=== PATIENT | male | born 1935 | race Caucasian/White ===

== ENCOUNTER 2020-09-22 09:30 | Outpatient (RCR) | payer MEDICARE, SELFPAY | END 2020-09-29 23:55 | disposition home or self-care (01) | LOC: HO.PAOS 09:30 | PROVIDERS: PCP Internal Medicine; Referring Provider Anesthesiology; Visit Provider Psychologist | DX: F43.23 Adjustment disorder with mixed anxiety and depressed mood (principal); Z63.4 Disappearance and death of family member | CPT/HCPCS: 90834 ==

== ENCOUNTER 2020-12-30 06:17 | Day surgery (SDC) | payer MEDICARE, SELFPAY ==
[2020-12-26 10:54] VITALS: BMI 23.5
--- NOTE | 2020-12-29 10:48 | P.CONAN_ITS ---
Documented by User: Stephani Huber 12/29/20 12:06 HPI - Anesthesia Eval Consult details Narrative: 85yo M for Spinal Cord Simulation Trial 12/12/20 Cardiology OV - pt with stable CAD with yearly f/u [facility] Past Medical History Medical History Anemia CAD (coronary artery disease) COPD (chronic obstructive pulmonary disease) Depression Diabetes Elevated cholesterol GERD (gastroesophageal reflux disease) HTN (hypertension) Pulmonary fibrosis Restless leg syndrome Surgical History Surgical History Hx of laminectomy Social History Social History Household Members: Spouse Smoking Status: Unknown if ever smoked Advance Directives Information Provided: No Meds Allergies Allergy/AdvReac Type Severity Reaction Status Date / Time No Known Allergies Allergy Verified 12/26/20 11:00 Home Medications Medication Instructions Recorded Confirmed Last Taken Type atorvastatin 1 tab PO DAILY 12/26/20 12/26/20 Unknown History duloxetine 1 cap PO DAILY 12/26/20 12/26/20 Unknown History fluticasone propionate 2 spray INTRANASAL QAM 12/26/20 12/26/20 Unknown History insulin glargine [Lantus U-100 7 unit SUBCUT BEDTIME 12/26/20 12/30/20 Unknown History Insulin] insulin lispro [Humalog U-100 15 unit SUBCUT BID 12/26/20 12/26/20 Unknown History Insulin] lisinopril 1 tab PO DAILY 12/26/20 12/26/20 Unknown History nitroglycerin 1 tab SUBLINGUAL NEEDED 12/26/20 12/26/20 Unknown History omeprazole 20 mg PO DAILY 12/26/20 12/26/20 Unknown History oxycodone 1 cap PO Q6H PRN 12/26/20 12/26/20 Unknown History pravastatin 1 tab PO DAILY 12/26/20 12/26/20 Unknown History sertraline 2 tab PO DAILY 12/26/20 12/26/20 Unknown History Exam Exam Date and Time: December 29, 2020 1048 Height,Weight and Vital Signs: Height 5 ft 7 in Weight 68.039 kg Narrative Narrative: EKG 12/12/20 SR with 1st degree AV block LAD LBBB Assessment and Plan Assessment Anesthesia Assessment: Chart Reviewed Documented by User: Harley Betancourt MD 12/30/20 07:34 [facility] Past Medical History Medical History Anemia CAD (coronary artery disease) COPD (chronic obstructive pulmonary disease) Depression Diabetes Elevated cholesterol GERD (gastroesophageal reflux disease) HTN (hypertension) Pulmonary fibrosis Restless leg syndrome Surgical History Surgical History Hx of laminectomy Social History Social History Household Members: Spouse Smoking Status: Unknown if ever smoked Advance Directives Information Provided: No Meds Allergies Allergy/AdvReac Type Severity Reaction Status Date / Time No Known Allergies Allergy Verified 12/26/20 11:00 Home Medications Medication Instructions Recorded Confirmed Last Taken Type atorvastatin 1 tab PO DAILY 12/26/20 12/26/20 Unknown History duloxetine 1 cap PO DAILY 12/26/20 12/26/20 Unknown History fluticasone propionate 2 spray INTRANASAL QAM 12/26/20 12/26/20 Unknown History insulin glargine [Lantus U-100 7 unit SUBCUT BEDTIME 12/26/20 12/30/20 Unknown History Insulin] insulin lispro [Humalog U-100 15 unit SUBCUT BID 12/26/20 12/26/20 Unknown History Insulin] lisinopril 1 tab PO DAILY 12/26/20 12/26/20 Unknown History nitroglycerin 1 tab SUBLINGUAL NEEDED 12/26/20 12/26/20 Unknown History omeprazole 20 mg PO DAILY 12/26/20 12/26/20 Unknown History oxycodone 1 cap PO Q6H PRN 12/26/20 12/26/20 Unknown History pravastatin 1 tab PO DAILY 12/26/20 12/26/20 Unknown History sertraline 2 tab PO DAILY 12/26/20 12/26/20 Unknown History Exam Airway Mallampati Class: II Denture: Upper and Lower Heart: LBBB Lungs: Cough Assessment and Plan Assessment Anesthesia Assessment: Anesthesia Plan Discussed and Chart Reviewed Final Anesthetic Review NPO: Yes ASA Class: III Final Preanesthetic Review: No Changes in Pt Med Stat, Meds/Allgs Chart Reviewed, Consent Obtained/Reviewed and Anes Risks/Benef Reviewed Patient Risk: Intermediate Procedure Risk: Low Anesthetic Plan Anesthetic Plan: MAC: Disposition: Standard PACU
--- NOTE | 2020-12-29 18:30 | MHC.SHP ---
Pre-Procedural Eval Section A The patient is an INPATIENT: No Changes since office visit: Yes Patient answered all questions The History & Physical has been completed within 30 days and I have reviewed it.: No Section B Chief Complaint: postlaminectomy syndrome Details of Present Illness: As above Relevant Social History: None Present Medications: see Short Stay Collaborative assessment Medical History: Significant History History of Previous Operations: Relevant previous surgery/procedure and date(s) Allergies: Allergies Allergy/AdvReac Type Severity Reaction Status Date / Time No Known Allergies Allergy Verified 12/26/20 11:00 Review of Systems Sugical H&P ROS: Negative: Constitution, Cardiovascular, Respiratory, Neurological, Psychiatric, Hem-Onc, Allergic/Immunologic, Gastrointestinal, Genitourinary, Musculoskeletal, Integumentary, Endocrine and Eyes/Ears/Nose/Throat Exam Surgical H&P Exam: Normal: HEENT, Normal: Heart, Normal: Lungs, Normal: Extremities, Normal: Abdomen, Normal: Skin and Normal: Neurological Plan Diagnosis/Plan: Unchanged I have reviewed the history and physical and performed a pertinent physical examination on my patient. No changes have occurred unless specified.
--- NOTE | ~2020-12-30 | FL_ITS ---
EXAMINATION: XR FLUOROSCOPY WITH IMAGES CLINICAL INFORMATION: Spinal stimulation trial COMPARISON: None. TECHNIQUE: Fluoroscopy performed by Dr. Amari Sams. Fluoroscopy time: 17.2 minutes DAP: 29.0 mGycm2 Images: 2 FINDINGS: AP and lateral views of cervicothoracic junction reveals 2 posterior epidural stimulators overlying C7 and T1 vertebra. FL/FL guidance in OR IMPRESSION: Fluoroscopy guidance was provided to Dr. Sams during the procedure.
[2020-12-30 06:46] LABS: Glucose, Whole Blood 225 mg/dL (60-115)
[2020-12-30 06:47] VITALS: BP 150/56; PULSE 63; RESP 16; TEMP 36.6; O2SAT 98
--- NOTE | 2020-12-30 06:59 | ECG_ITS ---
Test Reason : PREOP Blood Pressure : / mmHG Vent. Rate : 062 BPM Atrial Rate : 062 BPM P-R Int : 226 ms QRS Dur : 124 ms QT Int : 448 ms P-R-T Axes : 063 -60 071 degrees QTc Int : 454 ms Sinus rhythm with 1st degree A-V block with Premature supraventricular complexes Left axis deviation Left bundle branch block Abnormal ECG No previous ECGs available Referred By: Bassem Pagan Electronically Signed By:CHARLEY RINALDI MD
[2020-12-30] MEDS: Lactated Ringers 1,000 ML 100 ML IVCONT (07:12)
[2020-12-30 09:52] VITALS: BP 147/59; PULSE 58; RESP 18; TEMP 36.6; O2SAT 98
[2020-12-30] MEDS: Acetaminophen 325 MG TABLET 650 MG PO (09:57)
--- NOTE | 2020-12-30 09:57 | PM.OP ---
Brief Operative Note Date of Service: 12/30/20 Pre-op diagnosis: Postlaminectomy syndrome cervical spine Post-op diagnosis: same Procedure: Trial of cervical spinal cord stimulator Implants: None permanent Surgeon: Amari Sams MD Anesthesia: MAC Estimated blood loss (mL): 3 IV fluids (mL): 400 Pathology: none sent Condition: stable Disposition: PACU
[2020-12-30 10:07] VITALS: BP 152/57; PULSE 55; RESP 18; O2SAT 99
--- NOTE | 2020-12-30 10:14 | W.PM.OPN ---
Operative Note Operative Note Date of Service: 12/30/20 Narrative: Narrative: Isrrael is very pleasant 85 years old gentleman who came to OR for the trial of SCS [email or web address] in the attempt to treat the cervical pain secondary to postlaminectomy syndrome cervical spine. After obtaining informed consent patient was brought to the operating room, HE was positioned prone on operating table, [place] [employer] monitors were applied and patient was deeply sedated. Time-out was performed delineating correct site, side, the nature of the procedure, patient's allergy, preoperative antibiotic if needed. All operating room staff was participating in OR time-out procedure. He received preoperatively cefazolin 2 g mg IV approximately 20 minutes before the procedure. Patient's entire back was prepped with ChloraPrep twice and draped with full body fenestrated drape. Sterilely draped C-arm was brought over operating field and square picture of L1 L2 vertebrae were demonstrated on the screen. Attention FIRST was concentrated on the L1-L2 right epidural interspace. The location of the projection of the right pedicle center of the L3 vertebra was found on the skin using C-arm. This location was injected with mixture of lidocaine 2% and Marcaine 0.5% 5 cc. After that 11 blade was used to make a fortino on the skin. 10 cm 14 gauge curved introducer epidural needle was inserted through the fortino and advanced to the epidural interspace. The advancement of the needle was performed on anterior posterior and lateral views. Guitar wire and loss of resistance technique were used to locate epidural space. When guitar wire was spread in the epidural fashion, epidural lead was inserted through the needle and it was to advance to the cervical posterior epidural space on anterior posterior and lateral intermittent views. The advancement of the epidural lead was very difficult in the thoracic spine because of the significant scoliosis curvature. The advancement of the lead in the cervical spine was performed only to the level of C5 vertebral. Patient has significant laminectomy posterior in his cervical spine after which the epidural lead was not at all able to advance. Attempts to sneak the lead above the level of C5 vertebra were unsuccessful. It was abandoned. After that attention was concentrated on the T8 thoracic vertebra. T7-T8 interspace a was chosen as the site of the insertion of the electrode with the hope that the close insertion of the electrode will help to advance the electrode further After that location of the projection of the LEFT pedicle center of the T9 _vertebra was found on the skin using C-arm. This location was injected with mixture of lidocaine 2% and Marcaine 0.5% 5 cc. After that 11 blade was used to make a fortino on the skin. 10 cm 14 gauge curved introducer epidural needle was inserted through the fortino and advanced to T7-T8 epidural interspace. The advancement of the needle was performed on anterior posterior and lateral views. Guitar wire and loss of resistance technique were used to locate epidural space. When guitar wire was spread in the epidural fashion, epidural lead was inserted through the needle and advanced to the right epidural C5 posterior space crossing over the right lead. At this moment the epidural leads were connected to the testing device. Impedance was deemed satisfactory. Since the position of the leads and difficulty of the leads advancement were the maximum achievement I could perform and despite the fact that the epidural leads were spread only to C5 vertebra we decided not to perform wake up check. Impedance was verified. It was satisfactory. position of the leads were established the needles were withdrawn under x-ray control, the stylette wires were removed from the epidural leads. The anchoring devices were dislodged on the leads and advanced to the level of the skin. The anchoring devices were sutured with two 0-0 silk sutures to the skin of the patient and the screws of the anchoring devices were fixed until 3 clicks were heard. The leads were connected to testing device. Bacitracin ointment was applied to the entrance point of bilateral needles. Sterile dressing was applied to the patient's back. The testing device was also glued to the patient's back. Upon completion of the procedure the patient was taken to PACU where HE recovered and UNEVENTFULLY, HE WENT HOME WITHOUT IMMEDIATE COMPLICATIONS. He will continue to use ANTIBIOTICS: Cephalexin 1 g b.i.d.
[2020-12-30 10:25] VITALS: BP 145/59; PULSE 54; RESP 18; O2SAT 99
[2020-12-30 10:41] VITALS: BP 152/64; PULSE 56; RESP 18; O2SAT 98
[2020-12-30 11:20] VITALS: BP 152/64; PULSE 60; RESP 18; TEMP 36.6; O2SAT 97
== END 2020-12-30 11:49 | disposition home or self-care (01) ==
PROVIDERS: PCP Internal Medicine; Visit Provider Anesthesiology
PROC: (CPT 63650; principal; 2020-12-30 07:30)
DX: M96.1 Postlaminectomy syndrome, not elsewhere classified (principal); M47.812 Spondylosis without myelopathy or radiculopathy, cervical region; M54.2 Cervicalgia; M47.816 Spondylosis without myelopathy or radiculopathy, lumbar region; J44.9 Chronic obstructive pulmonary disease, unspecified; I10 Essential (primary) hypertension; E11.9 Type 2 diabetes mellitus without complications; Z79.84 Long term (current) use of oral hypoglycemic drugs; Z79.899 Other long term (current) drug therapy
CPT/HCPCS: 63650 ×2; 82947; 93005; C1897; J0690; J1100; J2370; J3010

== ENCOUNTER → 2021-01-05 10:17 | Outpatient (BNVA) | payer MEDICARE, SELFPAY ==
--- NOTE | 2021-04-29 08:22 | HO.POSTANES ---
Post Anesthesia Evaluation Post Anesthesia Evaluation Anesthesia: Monitored Mental Status: Awake Pain Control: Satisfactory Nausea/Vomiting: None Hydration: Adequate Anesthesia-Related Issues: No Anes. Related Issues
== END ==
PROVIDERS: PCP Internal Medicine; Visit Provider Anesthesiology
DX: M47.812 Spondylosis without myelopathy or radiculopathy, cervical region (principal); M96.1 Postlaminectomy syndrome, not elsewhere classified; G89.4 Chronic pain syndrome; Z79.899 Other long term (current) drug therapy
CPT/HCPCS: 99212

== ENCOUNTER 2021-04-28 10:30 | Day surgery (SDC) | payer MEDICARE, SELFPAY ==
[2021-04-28] VITALS (13 sets, daily range): BP systolic 121–208; BP diastolic 55–100; PULSE 55–68; RESP 14–18; TEMP 35.9–36.4; O2SAT 96–100; BMI 23.5
--- NOTE | ~2021-04-28 | FL_ITS ---
EXAMINATION: XR FLUOROSCOPY WITH IMAGES CLINICAL INFORMATION: Spinal stimulator implant. COMPARISON: None. TECHNIQUE: Fluoroscopy performed by Dr. Amari Sams. Fluoroscopy time: 5.5 minutes DAP: 19.9 mGycm2 Images: 5 FINDINGS: Multiple views of the thoracic and cervical spine were obtained. There are 2 stimulator is seen overlying the lower cervical spine inserted from the lower thoracic spine. Visualized bones and disc spaces are normal. FL/FL guidance in OR IMPRESSION: Fluoroscopy was provided to Dr. Sams for spinal stimulator implant.
[2021-04-28 11:06] LABS: Glucose, Whole Blood 205 mg/dL (60-115)
[2021-04-28] MEDS: Lactated Ringers 1,000 ML 50 ML IVCONT ×2 (11:42→20:24)
[2021-04-28] MEDS: ceFAZolin Sodium/Dextrose,Iso 2 GM/50 ML PIGGYBACK IV (11:43)
--- NOTE | 2021-04-28 13:55 | HO.ANESPROP2 ---
HPI - Anesthesia Eval Consult details Narrative: 85 year old male patient for cervical spinal cord stimulator implant PMFSH Active Problems Active Problems: All Active Problems (Updated 01/05/21 @ 12:12 by Amari Sams MD) Chronic pain syndrome (Acute) Spondylosis of cervical spine without myelopathy (Acute) Postlaminectomy syndrome of cervical region (Acute) Past Medical History Medical History (Updated 04/28/21 @ 14:20 by Monica Hunt) Anemia CAD (coronary artery disease) Chronic pain syndrome COPD (chronic obstructive pulmonary disease) Depression Diabetes Elevated cholesterol GERD (gastroesophageal reflux disease) HTN (hypertension) Postlaminectomy syndrome of cervical region Pulmonary fibrosis Restless leg syndrome Spondylosis of cervical spine without myelopathy Family History Family history of problems with anesthesia: No Surgical History Surgical History Hx of laminectomy History of Problems with Anesthesia: No Social History Social History Household Members: Spouse Patient Tobacco Use Status: Never used Tobacco Second Hand Smoke Exposure: No Use of substances other than those prescribed or required for medical reasons: No Are you DNR?: No Advance Directives: No Advance Directives Information Provided: No Advance Directives on File: No Meds Allergies Allergy/AdvReac Type Severity Reaction Status Date / Time No Known Allergies Allergy Verified 01/05/21 11:01 Home Medications Medication Instructions Recorded Confirmed Last Taken Type atorvastatin 1 tab PO DAILY 12/26/20 12/26/20 Unknown History duloxetine 1 cap PO DAILY 12/26/20 12/26/20 Unknown History fluticasone propionate 2 spray INTRANASAL QAM 12/26/20 12/26/20 Unknown History insulin glargine [Lantus U-100 7 unit SUBCUT BEDTIME 12/26/20 12/30/20 Unknown History Insulin] insulin lispro [Humalog U-100 15 unit SUBCUT BID 12/26/20 12/26/20 Unknown History Insulin] lisinopril 1 tab PO DAILY 12/26/20 12/26/20 Unknown History nitroglycerin 1 tab SUBLINGUAL NEEDED 12/26/20 12/26/20 Unknown History omeprazole 20 mg PO DAILY 12/26/20 12/26/20 Unknown History oxycodone 1 cap PO Q6H PRN 12/26/20 12/26/20 Unknown History pravastatin 1 tab PO DAILY 12/26/20 12/26/20 Unknown History sertraline 2 tab PO DAILY 12/26/20 12/26/20 Unknown History Exam Exam Date and Time: April 28, 2021 1355 Height,Weight and Vital Signs: Height 5 ft 7 in Weight 68.039 kg Vital Signs Temp Pulse Resp BP Pulse Ox 04/28/21 11:58 97.0 F 68 18 152/62 H 99 Pertinent Lab Results Pertinent Lab Results: Laboratory Tests 04/28/21 10:57 POC Glucose 205 H Airway Mallampati Class: II TM Dist: >3cm Neck ROM: Limited Denture: Upper and Lower Heart: RRR Lungs: CTAB Assessment and Plan Assessment Anesthesia Assessment: Anesthesia Plan Discussed and Chart Reviewed Final Anesthetic Review NPO: Yes ASA Class: III Final Preanesthetic Review: No Changes in Pt Med Stat, Meds/Allgs Chart Reviewed, Consent Obtained/Reviewed and Anes Risks/Benef Reviewed Patient Risk: Intermediate Procedure Risk: Intermediate Assessment/Block/Sedation in SS: Assess/Block/Sedation-SS Anesthetic Plan Anesthetic Plan: MAC: Disposition: Standard PACU
--- NOTE | 2021-04-28 14:07 | P.HPSUR_ITS ---
Pre-Procedural Eval Section A Date of Service: 04/28/21 Section B Chief Complaint: postlaminectomy syndrome Details of Present Illness: postlaminectomy syndrome of the cervical spine Relevant Family History (Specify if Yes): No Relevant Social History: None Present Medications: see Short Stay Collaborative assessment Medical History: Significant History History of Previous Operations: Relevant previous surgery/procedure and date(s) Allergies: Allergies Allergy/AdvReac Type Severity Reaction Status Date / Time No Known Allergies Allergy Verified 01/05/21 11:01 Review of Systems Sugical H&P ROS: Negative: Constitution, Cardiovascular, Respiratory, Neurological, Psychiatric, Hem-Onc, Allergic/Immunologic, Gastrointestinal, Genitourinary, Musculoskeletal, Integumentary, Endocrine and Eyes/Ears/Nose/Thr oat Exam Surgical H&P Exam: Normal: HEENT, Normal: Heart, Normal: Lungs, Normal: Extremities, Normal: Abdomen, Normal: Skin and Normal: Neurological Plan Diagnosis/Plan: Unchanged I have reviewed the history and physical and performed a pertinent physical examination on my patient. No changes have occurred unless specified.
--- NOTE | 2021-04-28 17:15 | PM.OP ---
Brief Operative Note Date of Service: 04/28/21 Pre-op diagnosis: Postlaminectomy syndrome cervical spine Post-op diagnosis: same Procedure: implantation of spinal cord stimulator [employer] 2 epidural leads in the posterior cervical spine as well as implantation of alpha wavewrider battery. Implants: Two epidural leads and alpha technology battery Surgeon: Amari Sams MD Anesthesia: MAC Was an Smoke Room Operator used for this Procedure?: No Estimated blood loss (mL): 25 Pathology: none sent Condition: stable Disposition: PACU
--- NOTE | 2021-04-28 17:17 | P.OP_ITS ---
Operative Note Operative Note Date of Service: 12/30/20 Narrative: Narrative: Isrrael is very pleasant 85 years old gentleman who came to OR for the implantl of SCS [employer] in the attempt to treat the cervical pain secondary to postlaminectomy syndrome cervical spine. After obtaining informed consent patient was brought to the operating room, HE was positioned prone on operating table, [place] [employer] monitors were applied and patient was deeply sedated. Time-out was performed delineating correct site, side, the nature of the procedure, patient's allergy, preoperative antibiotic if needed. All operating room staff was participating in OR time-out procedure. He received preoperatively cefazolin 2 g mg IV approximately 20 minutes before the procedure. Patient's entire back was prepped with ChloraPrep twice and draped with full body fenestrated drape. Sterilely draped C-arm was brought over operating field and square picture of T7-T8 T9 vertebrae were demonstrated on the screen. Attention FIRST was concentrated on the T7-T8 right epidural interspace. the projection of T8-T9 vertebral bodies to the skin was injected with lidocaine 2% mixed with bupivacaine 0.5%. After that strict midline incision was made in the projection of T8-T9 vertebral bodies to the skin. The injection was widened using cautery dissection, and then thorough hemostasis was performed and prevertebral fascia was freed from overlying tissues. The location of the projection of the right pedicle center of the T9 vertebra was found on the skin using C-arm. This location was injected with mixture of lidocaine 2% and Marcaine 0.5% 5 cc. 10 cm 14 gauge curved introducer epidural needle was inserted into the fascia and advanced to the epidural interspace T7 T 8. The advancement of the needle was performed on anterior posterior and lateral views. Guitar wire and loss of resistance technique were used to locate epidural space. When guitar wire was spread in the epidural fashion, epidural lead was inserted through the needle and it was advanced to the cervical posterior epidural space on anterior posterior and lateral intermittent views. The advancement of the epidural lead was very difficult in the thoracic spine because of the significant scoliosis curvature. The advancement of the lead in the cervical spine was performed only to the level of C4-C5 intervertebral space. to facilitate advancement of the epidural catheter to appropriate position the needle was withdrawn and blue sheath introducer was inserted and prevented the epidural lead to fold on itself while pushing against adhesion in the cervical spine.Patient has significant laminectomy posterior in his cervical spine after which the epidural lead was not at all able to advance. above that area attempts to advance the epidural lead were unsuccessful because of the very dense adhesions. After that location of the projection of the LEFT pedicle center of the T9 _vertebra was found on the skin using C-arm. This location was injected with mixture of lidocaine 2% and Marcaine 0.5% 5 cc. 10 cm 14 gauge curved introducer epidural needle was inserted through the fortino and advanced to T7-T8 epidural interspace. The advancement of the needle was performed on anterior posterior and lateral views. Guitar wire and loss of resistance technique were used to locate epidural space. When guitar wire was spread in the epidural fashion, epidural lead was inserted through the needle and advanced to the right epidural C4 posterior space . Again at this level on the left side epidural introducer sheath was substituted for the needle to prevent bending of the epidural lead and folding against itself while pushing it into the Posterior epidural space in the cervical spine. At this moment the epidural leads were connected to the testing device. Impedance was deemed satisfactory. position of the leads were established the needles were withdrawn under x-ray control, the stylette wires were removed from the epidural leads. The anchoring devices were dislodged on the leads and advanced to the level of the prevertebral fascia. They were fixed to prevertebral fascia with 2 Tycron sutures each anchoring device and then the screws were tightened on the a nchoring device fixating the epidural leads to the anchoring devices. after that thorough irrigation of the wound was performed with normal saline containing vancomycin and the wound was packed with vancomycin soaked 4 x 4 Ray-Melba. After that attention was concentrated on the left loin of the patient way he wanted the battery to be implanted. The injection Of the local anesthetic lidocaine 2% mixed with bupivacaine 0.5%was made in the projection of the horizontal line 3 cm below the lowest point of the 12 rib on the left.. after that 6.5 cm incision was made on the skin using 10 blade scalpel. The wound was widened using weitlaner retractor and thorough hemostasis was Performed using electrocautery device. After that 2 cm deep under the skin the pocket was formed for the battery. The thorough hemostasis was obtained again and irrigation was performed using vancomycin containing normal saline. after that the tunneling device was brought on the operating field and the 2 wounds were connected. Using tunneling device the epidural electrodes were dislodged into the lateral wound. The were connected to the battery with all specifications necessary for [employer] device. This is 4. outlet battery and care was taking to secure the other 2 openings with a prongs. The screws were tightened a and the sutures were applied in the most superior central portion of the wound and most superior lateral portion of the wound using Tycron 1.0 they were connected to the orifices on the battery, the epidural leads were gathered behind the body of the battery and the battery was inserted into the wound. After that anchoring sutures were tied. The wounds were again irrigated with vancomycin containing normal saline they were suction dried and the were closed using 0 uninterrupted Polysorb sutures. 2-0 sutures Polysorb were used to approximate the level of the skin. After that virgie were applied to the skin level. Bacitracin point was applied to the area of the surgical incisions and then sterile dressing was applied using Medipore tape. The patient tolerated procedure well. He was awakened and transferred to PACU for recovery without immediate complications.
--- NOTE | 2021-04-28 17:38 | PC.NURSE ---
DR. ROCHA, SPOUSE, AND MERIT SYSTEM DIRECTOR AT BEDSIDE TO REVIEW PROCEDURE AND PLAN OF CARE. DR. ROCHA COMPLETING BEDSIDE NEUROLOGICAL ASSESSMENT. PAGE. ABLE LIFT BOTH LOWER EXTREMITIES. PER FAMILY NEED TO ADMIT PATIENT RELATED TO GAIT INSTABILITY AND STAIRS AT HOME. NO SUPPORT AT HOME THIS EVENING. CALL OUT TO DR. VIDAL HOSPITALIST. [id number] DR. ROCHA COMPLETING M.D. TO M.D. REPORT FOR INPATIENT ADMISSION.
--- NOTE | 2021-04-28 18:24 | PM.IMHP ---
History of Present Illness Date of Service: 04/28/21 Chief Complaint: weakness 85M presented for elective implant of [employer] in the attempt to treat the cervical pain secondary to postlaminectomy syndrome of the cervical spine. procedure was unremarkable, however, due to age and debility of both patient and his spouse, they were uncomfortable going home the same evening after the procedure. observation overnight was requested until spouse could prepare her home to manage for patients recovery. patient denies chest pain, sob, fever, chills Review of Systems Cardiovascular: Cardiovascular: Reports no additional cardiovascular complaints Respiratory: Respiratory: Reports no additional respiratory complaints Gastrointestinal: Gastrointestinal: Reports no additional gastrointestinal complaints Genitourinary: Genitourinary: Reports no additional male genitourinary complaints Neurologic: Reports system reviewed and no additional complaints, except as documented Psychiatric: Psychiatric: Reports no additional psychiatric complaints [facility] Medical History Anemia CAD (coronary artery disease) Chronic pain syndrome COPD (chronic obstructive pulmonary disease) Depression Diabetes Elevated cholesterol GERD (gastroesophageal reflux disease) HTN (hypertension) Postlaminectomy syndrome of cervical region Pulmonary fibrosis Restless leg syndrome Spondylosis of cervical spine without myelopathy Family history: reviewed and not pertinent Surgical History Hx of laminectomy Social History Household Members: Spouse Patient Tobacco Use Status: Never used Tobacco Second Hand Smoke Exposure: No Use of substances other than those prescribed or required for medical reasons: No Are you DNR?: No Advance Directives: No Advance Directives Information Provided: No Advance Directives on File: No Meds Allergies Allergy/AdvReac Type Severity Reaction Status Date / Time No Known Allergies Allergy Verified 01/05/21 11:01 Active Medications: Current Medications Generic Name Dose Route Start Last Admin Trade Name Freq PRN Reason Stop Dose Admin Lactated Ringer's 1,000 mls @ 50 mls/hr 04/28/21 14:15 04/28/21 11:42 Lr IVCONT 50 mls/hr .Q20H KIM Administration Ondansetron HCl 4 mg 04/28/21 14:21 Ondansetron Hcl 4 Mg/2 Ml Vial IVPUSH ONCE PRN Nausea and Vomiting Home Medications Medication Instructions Recorded Confirmed Last Taken Type duloxetine 1 cap PO DAILY 12/26/20 12/26/20 04/27/21 History fluticasone propionate 2 spray INTRANASAL QAM 12/26/20 12/26/20 04/27/21 History insulin glargine [Lantus U-100 7 unit SUBCUT BEDTIME 12/26/20 12/30/20 04/27/21 History Insulin] insulin lispro [Humalog U-100 15 unit SUBCUT BID 12/26/20 12/26/20 04/27/21 History Insulin] lisinopril 1 tab PO DAILY 12/26/20 12/26/20 04/27/21 History nitroglycerin 1 tab SUBLINGUAL NEEDED 12/26/20 12/26/20 Unknown History omeprazole 20 mg PO DAILY 12/26/20 12/26/20 04/27/21 History oxycodone 1 cap PO Q6H PRN 12/26/20 12/26/20 Unknown History pravastatin 1 tab PO DAILY 12/26/20 12/26/20 Unknown History sertraline 2 tab PO DAILY 04/28/21 04/28/21 04/27/21 History Physical Exam Vital Signs and Narrative: Vital Signs: Last Vital Signs Temp 97.5 F 04/28/21 17:20 Pulse 55 04/28/21 18:05 Resp 18 04/28/21 18:05 BP 157/69 H 04/28/21 18:05 Pulse Ox 97 04/28/21 18:05 Body Mass Index 23.5 General: AO X 3, in cervical collar Resp: CTA bilateral CVS: S1,S2,RRR GI: soft, non tender, non distended Psych: appropriate affect Results Labs Labs: Laboratory Results - last 24 hr 04/28/21 10:57 POC Glucose 205 H Assessment and Plan (1) Chronic pain syndrome: Status: Acute 85M presented for cervical stimulator s/p cervical stimulator empiric keflex 500mg bid cervical collar, abdominal binder pain control MD insulin hld statin Quality Stroke Does the patient have a stroke diagnosis?: No VTE Prior VTE?: No VTE Risk Level:: Medical - moderate - high VTE Device Contraindication: N/A - Device Ordered VTE Drug Contraindication: Treatment Not Tolerated
[2021-04-28 18:28] LABS: Glucose, Whole Blood 163 mg/dL (60-115)
[2021-04-28] MEDS: oxyCODONE HCl Immed Release 5 MG TABLET PO (18:31)
[2021-04-28 20:26] LABS: Glucose, Whole Blood 213 mg/dL (60-115)
[2021-04-28] MEDS: Insulin Glargine,Hum.rec.anlog 100 UNIT/ML 10 ML VIAL 8 UNIT SUBCUT (20:26)
[2021-04-28] MEDS: HYDROcodone Bit/Acetam 5/325 TABLET 1 TAB PO (20:27)
[2021-04-28] MEDS: Pravastatin Sodium 40 MG TABLET PO (20:28)
[2021-04-28] MEDS: lisinopriL 10 MG TABLET PO (20:28)
--- NOTE | 2021-04-28 22:17 | PC.NURSE ---
abdominal binder in place,cervical collar in place
[2021-04-28] MEDS: cephALEXin 500 MG CAPSULE PO (22:37)
[2021-04-29] MEDS: HYDROmorphone HCl 0.5 MG/0.5 ML SYRINGE IVPUSH ×2 (00:28→06:22)
[2021-04-29 00:34] VITALS: BP 202/100; PULSE 60
[2021-04-29] MEDS: amLODIPine Besylate 2.5 MG TABLET PO (00:34)
[2021-04-29 01:22] VITALS: BP 192/83; PULSE 67
[2021-04-29 02:00] VITALS: BP 160/70; PULSE 65; RESP 16
[2021-04-29 06:23] VITALS: BP 183/81
[2021-04-29 06:29] LABS: Glucose, Whole Blood 220 mg/dL (60-115)
[2021-04-29 07:03] LABS: Mean Corpuscular HGB Conc 33.3 g/dl (31.0-36.0); Mean Corpuscular Hemoglobin 31.3 pg (27.0-33.0); Mean Platelet Volume 9.9 fL (9.4-12.4); Platelet Count 220 X10*3/uL (160-400); Red Blood Count 3.83 X10*6/uL (4.60-5.80); Red Cell Distribution Width 15.2 % (11.0-16.0); White Blood Count 8.8 X10*3/uL (4.8-10.8)
[2021-04-29 07:07] LABS: Anion Gap 17 (12-20); Blood Urea Nitrogen 19 mg/dL (9-16); Calcium 9.1 mg/dL (8.4-10.2); Carbon Dioxide 22 mmol/L (22-29); Chloride 102 mmol/L (96-108); Creatinine Clr Calc Pharmacy 53.5; Estimated Glomerular Filt Rate > 60; Glucose Random 239 mg/dL (60-115); Potassium 4.6 mmol/L (3.3-5.1); Sodium 136 mmol/L (135-145)
[2021-04-29 07:20] VITALS: BP 141/67; PULSE 70; RESP 18; TEMP 36.1; O2SAT 97
[2021-04-29] MEDS: lisinopriL 10 MG TABLET PO (09:18)
[2021-04-29] MEDS: Sertraline HCL 100 MG TABLET 200 MG PO (09:18)
[2021-04-29] MEDS: Insulin Lispro 100 UNIT/ML 3 ML VIAL 15 UNIT SUBCUT (09:19)
[2021-04-29] MEDS: HYDROcodone Bit/Acetam 5/325 TABLET 1 TAB PO (09:56)
[2021-04-29] MEDS: cephALEXin 500 MG CAPSULE PO (09:57)
--- NOTE | 2021-04-29 10:04 | PM.DS ---
DS: Providers Provider Date of Service: 04/29/21 Primary care physician: Unknown Physician DS: Diagnosis Discharge Diagnosis (1) Chronic pain syndrome: Status: Acute DS: Medications Discharge Medications Home Medications: Home Medications Medication Instructions Recorded Confirmed fluticasone propionate 2 spray INTRANASAL QAM 12/26/20 04/28/21 insulin glargine [Lantus U-100 8 unit SUBCUT BEDTIME 12/26/20 04/28/21 Insulin] insulin lispro [Humalog U-100 15 unit SUBCUT BID@0800,1700 12/26/20 04/28/21 Insulin] lisinopril 1 tab PO DAILY 12/26/20 04/28/21 nitroglycerin 1 tab SUBLINGUAL NEEDED PRN 12/26/20 04/28/21 omeprazole 20 mg PO DAILY 12/26/20 04/28/21 pravastatin 1 tab PO BEDTIME 12/26/20 04/28/21 insulin lispro [Humalog U-100 10 unit SUBCUT DAILY@1200 04/28/21 04/28/21 Insulin] lidocaine 3 patch TOPICAL DAILY 04/28/21 04/28/21 sertraline 2 tab PO DAILY 04/28/21 04/28/21 DS: Summary Hospital Course Hospital Course: patient was observed overnight, no events, will be discharge home, instructions per Dr. Sams. Time Spent with Patient Time attestation: Total time spent providing and/or coordinating discharge services: Discharge coordination time: Greater than 30 minutes Quality: Stroke Does the patient have a stroke diagnosis?: No Physical Exam Vital Signs: Vital Signs: Last Vital Signs Temp 97.0 F 04/29/21 07:20 Pulse 70 04/29/21 07:20 Resp 18 04/29/21 07:20 BP 141/67 H 04/29/21 07:20 Pulse Ox 97 04/29/21 07:20 Body Mass Index 23.5 DS: Data Data Completed and Pending Labs on day of discharge: Laboratory Results - last 24 hr 04/28/21 04/28/21 04/28/21 10:57 18:24 20:06 WBC RBC Hgb Hct MCV MCH MCHC RDW Plt Count MPV Absolute Nucleated RBC Nucleated RBC % (auto) Sodium Potassium Chloride Carbon Dioxide Anion Gap BUN Creatinine Estim Creat Clear Calc Estimated GFR POC Glucose 205 H 163 H 213 H Random Glucose Calcium 04/29/21 04/29/21 04/29/21 06:16 06:16 06:25 WBC 8.8 RBC 3.83 L Hgb 12.0 L Hct 36.0 L MCV 94.0 MCH 31.3 MCHC 33.3 RDW 15.2 Plt Count 220 MPV 9.9 Absolute Nucleated RBC 0.000 Nucleated RBC % (auto) 0.0 Sodium 136 Potassium 4.6 Chloride 102 Carbon Dioxide 22 Anion Gap 17 BUN 19 H Creatinine 0.96 Estim Creat Clear Calc 53.5 Estimated GFR > 60 POC Glucose 220 H Random Glucose 239 H Calcium 9.1 Discharge Plan Discharge Primary Care Provider: Physician,Unknown Patient Disposition: Home Health Service Referrals: Unknown,Unknown [Other] - 1 Week Discharge Medications: Continued Lantus U-100 Insulin 100 unit/mL solution 8 unit subcut BEDTIME RF: 0 nitroglycerin 0.3 mg tablet, sublingual 1 tab sublingual NEEDED PRN (Reason: Angina) RF: 0 pravastatin 40 mg tablet 1 tab PO BEDTIME RF: 0 lisinopril 10 mg tablet 1 tab PO DAILY RF: 0 insulin lispro [Humalog U-100 Insulin] 100 unit/mL solution 15 unit subcut BID@0800,1700 RF: 0 fluticasone propionate 50 mcg/actuation spray,suspension 2 spray intranasal QAM RF: 0 omeprazole 20 mg Capsule,Delayed Release(Dr/Ec) 20 mg PO DAILY RF: 0 sertraline 100 mg tablet 2 tab PO DAILY RF: 0 lidocaine 5 % adhesive patch,medicated 3 patch topical DAILY RF: 0 insulin lispro [Humalog U-100 Insulin] 100 unit/mL solution 10 unit subcut DAILY@1200 RF: 0 Discharge Orders: Discharge Order (Routine); Ordered 04/28/21 Ordered By: Amari Sams Activity Restrictions/Additional Instructions: Avoid heavy lifting more than 5 lb by both hands, Avoid torso turning, avoid sharp bending for next 8 weeks. avoid sharp turning the head, avoid nodding, back head flexing. Continue to wear abdominal binder for next 8 weeks. Continue to wear cervical collar for next 10 weeks. Avoid NSAIDs for the next 10 weeks. Continue taking antibiotics as prescribed for 14 days. Take OTC probiotics in between the doses of the antibiotics for next 14 days. take opioid medications as prescribed.
--- NOTE | 2021-04-29 10:42 | MHC.CM.PN ---
CM MET WITH PT WHO REPORTS HE LIVES AT HOME WITH HIS AND IS INDEPENDENT WITH CARE AT BASELINE. PT USES A CANE TO AMBULATE AND HAS NO HOME OR COMMUNITY SERVICES. PT REPORTS HIS PCP IS BETSY BESS AND STATES HE HAS A HCP COMPLETED THAT NAMES HIS HIS AGENT. CURRENT DC PLAN IS HOME TODAY WITH NO SERVICES PTS TO TRANSPORT
[2021-04-29 11:52] LABS: Glucose, Whole Blood 183 mg/dL (60-115)
--- NOTE | 2021-04-29 12:19 | PC.NURSE ---
1200 discharge instruc given to pt and spouse. Verbalized understanding. 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 Physical restrictions reviewed.
== END 2021-04-29 12:19 | disposition home or self-care (01) ==
LOC: HO.SSS 17:15 → HO.S3 19:02 → HO.SSS 05-01 08:44
PROVIDERS: Anesthesiology; Visit Provider Internal Medicine
PROC: (CPT 63685; principal; 2021-04-28 12:20)
DX: M96.1 Postlaminectomy syndrome, not elsewhere classified (principal); G89.4 Chronic pain syndrome; M47.812 Spondylosis without myelopathy or radiculopathy, cervical region; D64.9 Anemia, unspecified; J44.9 Chronic obstructive pulmonary disease, unspecified; I10 Essential (primary) hypertension; E11.9 Type 2 diabetes mellitus without complications; Z79.4 Long term (current) use of insulin; Z79.899 Other long term (current) drug therapy
CPT/HCPCS: 63685; 63650 ×2; 36415; 80048; 82947; 85027; C1713; C1778; C1787; C1820; J0690; J1170; J3010; J3370

== ENCOUNTER → 2021-05-04 13:43 | Outpatient (BNVA) | payer MEDICARE, SELFPAY | PROVIDERS: Visit Provider Anesthesiology | DX: M96.1 Postlaminectomy syndrome, not elsewhere classified (principal); M47.812 Spondylosis without myelopathy or radiculopathy, cervical region; G89.4 Chronic pain syndrome; Z79.899 Other long term (current) drug therapy | CPT/HCPCS: 99212 ==

== ENCOUNTER → 2021-05-12 09:47 | Outpatient (BNVA) | payer MEDICARE, SELFPAY | PROVIDERS: PCP Internal Medicine; Visit Provider Internal Medicine | DX: M96.1 Postlaminectomy syndrome, not elsewhere classified (principal) | CPT/HCPCS: 99212 ==

== ENCOUNTER → 2021-05-24 10:49 | Outpatient (BNVA) | payer MEDICARE, SELFPAY | PROVIDERS: PCP Internal Medicine; Visit Provider Anesthesiology | DX: M96.1 Postlaminectomy syndrome, not elsewhere classified (principal); M47.812 Spondylosis without myelopathy or radiculopathy, cervical region; G89.4 Chronic pain syndrome | CPT/HCPCS: 99212 ==

== ENCOUNTER → 2021-06-21 13:11 | Outpatient (BNVA) | payer MEDICARE, SELFPAY | PROVIDERS: PCP Internal Medicine; Visit Provider Anesthesiology | DX: M96.1 Postlaminectomy syndrome, not elsewhere classified (principal); M47.812 Spondylosis without myelopathy or radiculopathy, cervical region; G89.4 Chronic pain syndrome; Z79.899 Other long term (current) drug therapy | CPT/HCPCS: 99212 ==

== ENCOUNTER → 2021-07-26 13:11 | Outpatient (BNVA) | payer MEDICARE, SELFPAY | PROVIDERS: PCP Internal Medicine; Visit Provider Anesthesiology | DX: Z51.81 Encounter for therapeutic drug level monitoring (principal); M96.1 Postlaminectomy syndrome, not elsewhere classified; M47.812 Spondylosis without myelopathy or radiculopathy, cervical region; G89.4 Chronic pain syndrome | CPT/HCPCS: 99212 ==

== ENCOUNTER → 2021-08-08 11:25 | Outpatient (BNVA) | payer MEDICARE, SELFPAY | PROVIDERS: PCP Internal Medicine; Visit Provider Surgery Vascular Surgery | DX: I73.9 Peripheral vascular disease, unspecified (principal) | CPT/HCPCS: 99212 ==

== ENCOUNTER 2021-08-29 10:17 | Outpatient (REF) | payer MEDICARE, SELFPAY ==
--- NOTE | ~2021-08-29 | US_ITS ---
EXAMINATION: NONINVASIVE ASSESSMENT OF THE ARTERIES OF BOTH LOWER EXTREMITIES WITH ANKLE PRESSURE MEASUREMENTS, ANKLE BRACHIAL INDICES, PVR MEASUREMENTS AND BILATERAL LOWER EXTREMITY DUPLEX CLINICAL INFORMATION: Peripheral vascular disease, cold feet, claudication and left lower extremity discoloration. Decreased lower extremity pulses. TECHNIQUE: Ankle pressure measurements, ankle brachial indices and PVR tracings were obtained of the lower extremity arterial system bilaterally. In addition, duplex Doppler techniques with wave form analysis and measurement of velocities in the common femoral, profunda femoral, superficial femoral, popliteal and tibial arteries was performed. The study was performed only at rest. COMPARISON: None FINDINGS: NONINVASIVE ASSESSMENT OF THE ARTERIES OF BOTH LOWER EXTREMITIES WITH ABIs: RIGHT LEG: Right ankle-brachial index: 1.01 PVR (ankle): Normal amplitude. Loss of dicrotic notch. LEFT LEG: Ankle-brachial index: 0.84 PVR (ankle): Normal amplitude. Loss of dicrotic notch. BILATERAL LOWER EXTREMITY DUPLEX ULTRASOUND: RIGHT LEG: Common femoral artery: 211 cm/s, Diastolic flow reversal: Yes Profunda femoris artery: 236 cm/s, Diastolic flow reversal: Yes Superficial femoral artery (proximal): 147 cm/s, Diastolic flow reversal: Yes Superficial femoral artery (mid): 76 cm/s, Diastolic flow reversal: Yes Superficial femoral artery (distal): 45 cm/s, Diastolic flow reversal: Yes Popliteal artery: 44 cm/s, Diastolic flow reversal: Yes Posterior tibial artery: 78 cm/s, Diastolic flow reversal: Yes ADDITIONAL: Collateral vessels are seen arising from the distal SFA. Multiple collaterals are also seen arising from the proximal and mid posterior tibial artery. LEFT LEG: Common femoral artery: 133 cm/s, Diastolic flow reversal: Yes Profunda femoris artery: 88 cm/s, Diastolic flow reversal: Yes Superficial femoral artery (proximal): 107 cm/s, Diastolic flow reversal: Yes Superficial femoral artery (mid): 69 cm/s, Diastolic flow reversal: Yes Superficial femoral artery (distal): 44 cm/s, Diastolic flow reversal: Yes Popliteal artery: 55 cm/s, Diastolic flow reversal: Yes Posterior tibial artery: 38 cm/s, Diastolic flow reversal: No ADDITIONAL: Collateral vessels are seen arising from the proximal posterior tibial artery and mid posterior tibial artery. US/US arterial duplex LE BI IMPRESSION: Right Leg: FUNMI 1.01. Duplex ultrasound demonstrates increased velocity within the common femoral and proximal profunda femoris arteries consistent with moderate hemodynamically significant stenoses. Left Leg: FUNMI 0.84. Mild peripheral arterial disease without evidence of high-grade outflow stenosis. FUNMI Reference: - >0.97-1.25 = normal - no significant arterial disease - 0.75-0.96 = mild peripheral arterial disease - 0.5-0.74 = moderate peripheral arterial disease - <0.50 = severe peripheral arterial disease
== END 2021-08-29 10:18 | disposition home or self-care (01) ==
LOC: HO.US 10:17
PROVIDERS: PCP Internal Medicine; Visit Provider Surgery Vascular Surgery
DX: I73.9 Peripheral vascular disease, unspecified (principal)
CPT/HCPCS: 93923; 93925

== ENCOUNTER → 2021-08-31 13:59 | Outpatient (BNVA) | payer MEDICARE, SELFPAY | PROVIDERS: PCP Internal Medicine; Visit Provider Surgery Vascular Surgery | DX: I73.9 Peripheral vascular disease, unspecified (principal) | CPT/HCPCS: 99212 ==

== ENCOUNTER 2024-11-18 12:34 | Outpatient (REF) | payer MEDICARE, SELFPAY ==
[2024-11-18 13:51] LABS: Erythrocyte Sedimentation Rate 16 MM/HR (0-15)
--- OUTSIDE RECORDS SUMMARY | 2024-11-18 14:43 | XMS_ITS | Clinical Summary ---
Author Organization [facility] ity Address [address] [place] [address] Care Team Providers Care Surfboard Maker Name Role Phone Unavailable Primary Care Provider Unavailabl e Social History Tobacco Use Types Packs/Day Years Used Date Smoking Tobacco: Never Assessed Sex and Gender Information Value Date Recorded Sex Assigned at Not on file Gender Identity Not on file Sexual Orientation Not on file Plan of Treatment Health Maintenance Due Date Last Done Comments DTaP,Tdap,and Td Vaccines (1 - Tdap) 1955 Zoster Vaccines (1 of 2) 1986 Pneumococcal Vaccine: 65+ Ye ars (1 of 1 - PCV) 2001 RSV Immunization Patients 60 + Years Old (1 - 1-dose 75+ series) 2011 COVID-19 Vaccine ( - 2023-2 5 season) 2024 Influenza Vaccine (#1) 2024 HIB Vaccines Aged Out No longer eligi ble based on patient's age to complete this topic HPV Vaccines Aged Out No longer eligi ble based on patient's age to complete this topic Hepatitis A Vaccines Aged Out No long er eligible based on patient's age to complete this topic Hepatitis B Vaccines Aged Out No long er eligible based on patient's age to complete this topic IPV Vaccines Aged Out No longer eligi ble based on patient's age to complete this topic MMR Vaccines Aged Out No longer eligi ble based on patient's age to complete this topic Meningococcal ACWY Vaccine Aged Out N o longer eligible based on patient's age to complete this topic RSV Immunization Patients Un rubén 20 months Aged Out No longer eligible b ased on patient's age to complete this topic Varicella Vaccines Aged Out No longer eligible based on patient's age to complete this topic Advance Directives Documents on File Type Date Recorded Patient Nitroglycerin Neutralizer Expl anation Health Care Decision (hx) 08/27/2019 AD PLUNKETT DIRECTIVE Health Care Decision (hx) 08/27/2019 AD PLUNKETT DIRECTIVE Health Care Decision (hx) 08/27/2019 AD DIMITRIOS DIRECTIVE
== END 2024-11-18 12:35 | disposition home or self-care (01) ==
LOC: HO.LAB 12:34
PROVIDERS: PCP Internal Medicine; Visit Provider Psychiatry & Neurology Neurology
DX: M47.812 Spondylosis without myelopathy or radiculopathy, cervical region (principal)
CPT/HCPCS: 36415; 82550; 85652

== ENCOUNTER 2025-06-16 13:24 | Outpatient (AMB) | payer MEDICARE, SELFPAY ==
--- NOTE | 2025-06-16 14:07 | A.OFFVIS_ITS ---
Intake Visit Reasons: 6 Months Allergies No Known Allergies Allergy (Verified 08/31/21 14:06) HPI Comments Details: 89 yo RH man with DM, diabetic neuropathy causing foot discomfort at night, hand tremor better with primidone, right lumbar radiculapathy s/p surgery by Dr. Evangelista, and chronic neck pain with cervical spnodyloarthritis. He is taking primidone 50 mg twice a day and reported that it was helping a lot in his tremor were better. He was walking better. At home he would either use a cane or a walker. There was no obvious side effect. 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 Physical Exam Neuro Other: Mental Status: Alert and oriented to person, place, and time. Normal attention. Normal spontaneous speech, fluency, and comprehension. Cranial Nerves: CN II: Visual edouard full to confrontation, visual acuity intact. CN III, IV, : Pupils equal, round, reactive to light and accommodation. Extraocular movements are normal. CN V: Facial sensation is normal. CN VII: Facial movements symmetrical. CN VIII: Hearing intact to bedside conversation is normal. CN IX, X: Palate elevates symmetrically. CN XI: Shoulder shrug and head turn symmetrical. CN XII: Tongue midline without atrophy or fasciculations. Moderately slow and ataxic gait with a cane. Moderate diffuse muscle atrophy. Speech: Normal; no dysarthria or tremor. Assessment & Plan Assessment & Plan (1) Tremor: Code(s): R25.1 - Tremor, unspecified Category: Medical (2) Diabetic neuropathy: Comment: NCV/EMG RTUE RTLE (in office) Moderate right peroneal neuropathy. Chronic right lower lumbar radiculopathy. Mild to moderate right median neuropathy across the Carpal tunnel. 12/10/24 Code(s): E11.40 - Type 2 diabetes mellitus with diabetic neuropathy, unspecified Category: Medical Qualifiers: Diabetes mellitus type: type 2 Diabetes mellitus complication detail: diabetic polyneuropathy Qualified Code(s): E11.42 - Type 2 diabetes mellitus with diabetic polyneuropathy Plan Impression: a: Tremor, better with primidone b: Chronic diabetic neuropathy c: Arthritis d: Multifactorial gait disorder Rec: a: Primidone 50mg bid b: Use a walker for ambulation Medications: New primidone 50 mg PO BID 180 tabs 1RF Coding Level of Care Code Tele Est Pt Level 4 (15086) Diagnoses Tremor R25.1 Diabetic polyneuropathy associated with type 2 diabetes mellitus E11.42 Diabetes mellitus type: type 2 Diabetes mellitus complication detail: diabetic polyneuropathy
== END 2025-06-16 14:18 | disposition home or self-care (01) ==
LOC: HO.HSM 13:25
PROVIDERS: PCP Internal Medicine; Referring Provider Internal Medicine; Visit Provider Psychiatry & Neurology Neurology
DX: R25.1 Tremor, unspecified (principal); E11.42 Type 2 diabetes mellitus with diabetic polyneuropathy
CPT/HCPCS: 99214

== ENCOUNTER → 2025-06-16 13:24 | Outpatient (BNVA) | payer MEDICARE, SELFPAY | PROVIDERS: PCP Internal Medicine; Referring Provider Internal Medicine; Visit Provider Psychiatry & Neurology Neurology | DX: R25.1 Tremor, unspecified (principal); E11.42 Type 2 diabetes mellitus with diabetic polyneuropathy; M54.16 Radiculopathy, lumbar region; M47.812 Spondylosis without myelopathy or radiculopathy, cervical region; M54.2 Cervicalgia; G89.29 Other chronic pain; M96.1 Postlaminectomy syndrome, not elsewhere classified | CPT/HCPCS: 99212 ==